=== PATIENT | male | born 1935 | race Hispanic/Latino ===

== ENCOUNTER 2017-04-10 11:10 | Inpatient (IN) | payer OTHER, MEDICARE ==
[~2017-04-10] VITALS: Ht 177.8 cm; Wt 78.6 kg
[2017-04-10] MEDS ORDERED: IPRATROPIUM/ALBUTEROL SULFATE 3 ML SOLUTION IH ONE ×2 (11:31→22:07)
[2017-04-10 11:45] LABS: CREATININE 2.9 mg/dL (0.5-1.5); POTASSIUM 3.6 mmol/L (3.5-5.1)
[2017-04-10 11:50] LABS: ALBUMIN 2.9 g/dL (3.5-5.0); BILIRUBIN,TOTAL 0.9 mg/dL (0.2-1.0); TOTAL PROTEIN, SERUM 6.4 g/dL (6.0-8.3)
[2017-04-10] MEDS ORDERED: CEFTRIAXONE SODIUM 1 GM ONE (11:50)
[2017-04-10] MEDS ORDERED: SODIUM CHLORIDE 0.9% 1000ML 3,000 ML IV ONE (11:50)
[2017-04-10] MEDS ORDERED: AZITHROMYCIN 500MG+NS 250ML 250 ML IV ONE (11:50)
[2017-04-10 11:57] LABS: BASOPHILS % (AUTO) 0.4 % (0.0-5.0); EOSINOPHILS % (AUTO) 0.1 % (0.0-8.0); HEMATOCRIT 30.3 % (42-54); LYMPHOCYTES % (AUTO) 10.1 % (21.0-51.0); MEAN CORPUSCULAR HGB CONC 33.9 g/dL (32.0-36.0); MEAN CORPUSCULAR VOLUME 91.4 fL (79-99); MONOCYTES % (AUTO) 10.2 % (3.0-13.0); NEUTROPHILS % (AUTO) 79.2 % (40.0-77.0); PLATELET COUNT (AUTO) 182 K/uL (130-400); RED BLOOD CELL COUNT(AUTO) 3.32 MIL/uL (4.50-6.20); RED CELL DISTRIBUTION WIDTH 14.6 % (11.0-15.5); WHITE BLOOD COUNT (AUTO) 12.4 K/uL (4.8-10.8)
[2017-04-10 13:11] LABS: CREATINE KINASE MB 11.5 ng/mL (0.5-3.6)
[2017-04-10] MEDS ORDERED: ENOXAPARIN SODIUM 100 MG/1 ML SQ ONE (13:11)
[2017-04-10] MEDS ORDERED: ASPIRIN 81MG TAB.CHEW ONE (13:11)
[2017-04-10] MEDS ORDERED: FUROSEMIDE 10 MG/ML 4ML VIAL ONE ×2 (13:32→17:02)
[2017-04-10 17:56] LABS: CREATINE KINASE MB 12.7 ng/mL (0.5-3.6)
[2017-04-10 18:01] LABS: TROPONIN I 18.41 ng/mL (0.00-0.06)
[2017-04-10] MEDS ORDERED: DOXYCYCLINE 100MG+NS 250ML 250 ML IV SCH (18:15)
[2017-04-10] MEDS: ZOSYN 3.375GM+NS 50ML 50 ML IV SCH (18:15)
[2017-04-10 18:37] LABS: ABG BASE EXCESS -2.7 mmol/L (-2.0-3.0); ABG HCO3 20.1 mmol/L (21.0-28.0); ABG OXYGEN SATURATION 93.9 % (95.0-99.0); ABG PCO2 30 mmHg (35-48)
[2017-04-10] MEDS ORDERED: ACETAMINOPHEN 120 MG SUPPOSITORY RC ONE (19:20)
[2017-04-10 19:35] LABS: APPEARANCE,URINE Clear (CLEAR); BILIRUBIN,URINE Negative (NEGATIVE); COLOR,URINE Yellow (YELLOW); GLUCOSE, URINE (UA) Negative (NEGATIVE); KETONES,URINE Negative (NEGATIVE); LEUKOCYTE ESTERASE ,URINE Trace (NEGATIVE); NITRATE,URINE Negative (NEGATIVE); OCCULT BLOOD,URINE Negative (NEGATIVE); PROTEIN,URINE Negative (NEGATIVE); UROBILINOGEN,URINE 0.2 mg/dL (0.2-1.0)
[2017-04-10 19:46] LABS: BACTERIA,URINE Rare /HPF (None Seen); RBC,URINE 0-1 /HPF (0-1); SQUAMOUS EPITHELIAL CELL,UR Rare /LPF (0-2)
[2017-04-10] MEDS ORDERED: DOXYCYCLINE 100MG+NS 250ML 250 ML IV ONE (22:05)
[2017-04-10] MEDS ORDERED: ZOSYN 3.375GM+NS 50ML 50 ML IV ONE (22:05)
[2017-04-10 23:02] LABS: CREATININE 2.6 mg/dL (0.5-1.5); POTASSIUM 3.5 mmol/L (3.5-5.1)
[2017-04-10 23:09] VITALS: BP 147/86
[2017-04-10 23:28] LABS: ALBUMIN 2.7 g/dL (3.5-5.0); BILIRUBIN,TOTAL 0.9 mg/dL (0.2-1.0); CREATINE KINASE MB 14.5 ng/mL (0.5-3.6); TOTAL PROTEIN, SERUM 6.2 g/dL (6.0-8.3)
[2017-04-10 23:30] VITALS: BP 125/47
[2017-04-10 23:30] LABS: TROPONIN I 18.17 ng/mL (0.00-0.06)
[2017-04-11] VITALS (27 sets, daily range): BP systolic 111–135; BP diastolic 59–94
[2017-04-11] MEDS ORDERED: IPRATROPIUM 0.5 MG/2.5 ML INH IH SCH
[2017-04-11] MEDS ORDERED: ACETAMINOPHEN 325 MG TAB PO PRN ×2 (00:15)
[2017-04-11] MEDS: IPRATROPIUM 0.5 MG/2.5 ML INH IH SCH ×6 (02:54→22:47)
[2017-04-11 04:00] LABS: HEMATOCRIT 30.4 % (42-54); MEAN CORPUSCULAR HEMOGLOBIN 32.5 pg (27.0-33.0); MEAN CORPUSCULAR HGB CONC 35.1 g/dL (32.0-36.0); MEAN CORPUSCULAR VOLUME 92.7 fL (79-99); PLATELET COUNT (AUTO) 186 K/uL (130-400); RED BLOOD CELL COUNT(AUTO) 3.28 MIL/uL (4.50-6.20); RED CELL DISTRIBUTION WIDTH 14.6 % (11.0-15.5); WHITE BLOOD COUNT (AUTO) 11.8 K/uL (4.8-10.8)
[2017-04-11 04:04] LABS: ABG BASE EXCESS -0.3 mmol/L (-2.0-3.0); ABG HCO3 22.1 mmol/L (21.0-28.0); ABG PCO2 31 mmHg (35-48)
[2017-04-11 04:07] LABS: INR 1.17 (0.85-1.15); PARTIAL THROMBOPLASTIN TIME 35.9 SEC (26.3-35.5); PROTHROMBIN TIME 12.2 SEC (9.6-11.6)
[2017-04-11 04:13] LABS: ALBUMIN 2.6 g/dL (3.5-5.0); BILIRUBIN,TOTAL 0.8 mg/dL (0.2-1.0); CREATININE 2.6 mg/dL (0.5-1.5); PHOSPHORUS 5.1 mg/dL (2.5-4.9); POTASSIUM 3.2 mmol/L (3.5-5.1); TOTAL PROTEIN, SERUM 6.1 g/dL (6.0-8.3)
[2017-04-11 04:16] LABS: B-TYPE NATRIURETIC PEPTIDE 920 pg/mL (0-100)
[2017-04-11 06:51] LABS: CREATINE KINASE MB 10.4 ng/mL (0.5-3.6)
[2017-04-11 06:54] LABS: TROPONIN I 18.27 ng/mL (0.00-0.06)
[2017-04-11] MEDS: ZOSYN 3.375GM+NS 50ML 50 ML IV SCH ×2 (06:57→20:09)
[2017-04-11] MEDS ORDERED: ZOSYN 3.375GM+NS 50ML 50 ML IV SCH (07:00)
[2017-04-11] MEDS ORDERED: ENOXAPARIN SODIUM 1 MG/KG SQ SCH (09:00)
[2017-04-11] MEDS ORDERED: ASPIRIN 325 MG TABLET PO SCH (09:00)
[2017-04-11] MEDS: OSELTAMIVIR PHOSPHATE 75 MG CAP PO SCH (09:52)
[2017-04-11] MEDS: LEVOFLOXACIN 500 MG/D5W 100 ML 100 ML IV SCH (09:52)
[2017-04-11] MEDS ORDERED: SODIUM CHLORIDE 3% FOR INHALATION 4 ML/AMP VIAL.NEB IH ONE ×2 (10:18→14:12)
[2017-04-11] MEDS: DOXYCYCLINE 100MG+NS 250ML 250 ML IV SCH ×2 (11:36→22:11)
[2017-04-11] MEDS: ENOXAPARIN SODIUM 80 MG/0.8 ML SQ SCH ×2 (11:39→22:11)
[2017-04-11] MEDS: FUROSEMIDE 10 MG/ML 4ML VIAL IV SCH ×2 (11:39→22:12)
[2017-04-11] MEDS ORDERED: MAG HYDROX/AL HYDROX/SIMETH ES 30 ML SUSP UDCUP PO PRN (18:45)
[2017-04-11] MEDS: ATORVASTATIN CALCIUM 20 MG TABLET PO SCH (20:08)
[2017-04-11] MEDS: DOBUTAMINE 250MG/D5 250ML 250 ML IV SCH (20:40)
[2017-04-12] VITALS (24 sets, daily range): BP systolic 98–148; BP diastolic 43–84
[2017-04-12] MEDS ORDERED: SODIUM CHLORIDE 3% FOR INHALATION 4 ML/AMP VIAL.NEB IH ONE (02:41)
[2017-04-12] MEDS: IPRATROPIUM 0.5 MG/2.5 ML INH IH SCH ×6 (02:44→22:18)
[2017-04-12 05:51] LABS: HEMATOCRIT 31.6 % (42-54); MEAN CORPUSCULAR HEMOGLOBIN 31.8 pg (27.0-33.0); MEAN CORPUSCULAR HGB CONC 34.9 g/dL (32.0-36.0); MEAN CORPUSCULAR VOLUME 91.2 fL (79-99); PLATELET COUNT (AUTO) 224 K/uL (130-400); RED BLOOD CELL COUNT(AUTO) 3.46 MIL/uL (4.50-6.20); RED CELL DISTRIBUTION WIDTH 14.6 % (11.0-15.5); WHITE BLOOD COUNT (AUTO) 9.2 K/uL (4.8-10.8)
[2017-04-12 05:52] LABS: B-TYPE NATRIURETIC PEPTIDE 954 pg/mL (0-100)
[2017-04-12 06:03] LABS: CREATINE KINASE MB 6.5 ng/mL (0.5-3.6); CREATININE 2.4 mg/dL (0.5-1.5)
[2017-04-12 06:07] LABS: POTASSIUM 2.8 mmol/L (3.5-5.1); TROPONIN I 11.52 ng/mL (0.00-0.06)
[2017-04-12 06:10] LABS: % IRON SATURATION 11.6 % (30-44)
[2017-04-12] MEDS ORDERED: POTASSIUM CHLORIDE 20MEQ/100ML 100 ML IV ONE ×3 (06:41→11:00)
[2017-04-12] MEDS ORDERED: POTASSIUM CHLORIDE 20MEQ/100ML 100 ML IV SCH (07:19)
[2017-04-12 07:29] LABS: ABG BASE EXCESS 1.9 mmol/L (-2.0-3.0); ABG HCO3 23.6 mmol/L (21.0-28.0); ABG OXYGEN SATURATION 93.5 % (95.0-99.0); ABG PCO2 29 mmHg (35-48)
[2017-04-12 07:47] LABS: PHOSPHORUS 4.9 mg/dL (2.5-4.9)
[2017-04-12] MEDS ORDERED: METOLAZONE 2.5 MG TABLET PO SCH (09:30)
[2017-04-12] MEDS: FUROSEMIDE 10 MG/ML 4ML VIAL IV SCH ×2 (09:54→22:30)
[2017-04-12] MEDS: POTASSIUM CHLORIDE 20MEQ/100ML 100 ML IV SCH ×2 (09:55→13:30)
[2017-04-12] MEDS: OSELTAMIVIR PHOSPHATE 75 MG CAP PO SCH (09:55)
[2017-04-12] MEDS: LEVOFLOXACIN 500 MG/D5W 100 ML 100 ML IV SCH (09:55)
[2017-04-12] MEDS: ZOSYN 3.375GM+NS 50ML 50 ML IV SCH ×2 (09:55→20:52)
[2017-04-12] MEDS: TAMSULOSIN HCL 0.4 MG CAP.ER.24H PO SCH (09:55)
[2017-04-12] MEDS: CARVEDILOL 3.125 MG TABLET PO SCH ×2 (09:56→20:50)
[2017-04-12] MEDS: ASPIRIN 325MG EC TAB 325 MG TABLET.DR PO SCH (09:56)
[2017-04-12] MEDS: DOXYCYCLINE 100MG+NS 250ML 250 ML IV SCH ×2 (09:57→20:56)
[2017-04-12] MEDS ORDERED: FAMOTIDINE 20MG TAB 20 MG TAB PO SCH (10:00)
[2017-04-12] MEDS: ENOXAPARIN SODIUM 80 MG/0.8 ML SQ SCH ×2 (10:29→20:52)
[2017-04-12] MEDS: DOBUTAMINE 250MG/D5 250ML 250 ML IV SCH (15:56)
[2017-04-12] MEDS: ATORVASTATIN CALCIUM 20 MG TABLET PO SCH (20:49)
[2017-04-13] VITALS (24 sets, daily range): BP systolic 112–158; BP diastolic 50–102
[2017-04-13] MEDS: IPRATROPIUM 0.5 MG/2.5 ML INH IH SCH ×6 (02:03→21:55)
[2017-04-13 03:44] LABS: MEAN CORPUSCULAR HEMOGLOBIN 32.1 pg (27.0-33.0); MEAN CORPUSCULAR HGB CONC 35.1 g/dL (32.0-36.0); MEAN CORPUSCULAR VOLUME 91.6 fL (79-99); PLATELET COUNT (AUTO) 247 K/uL (130-400); RED BLOOD CELL COUNT(AUTO) 3.38 MIL/uL (4.50-6.20); RED CELL DISTRIBUTION WIDTH 14.2 % (11.0-15.5); WHITE BLOOD COUNT (AUTO) 8.8 K/uL (4.8-10.8)
[2017-04-13 04:04] LABS: CREATININE 2.2 mg/dL (0.5-1.5); MAGNESIUM 1.8 mg/dL (1.80-2.40); PHOSPHORUS 4.3 mg/dL (2.5-4.9)
[2017-04-13 04:09] LABS: POTASSIUM 2.7 mmol/L (3.5-5.1)
[2017-04-13] MEDS ORDERED: POTASSIUM CHLORIDE 20MEQ/100ML 100 ML IV SCH (04:15)
[2017-04-13 06:20] LABS: ABG BASE EXCESS 2.7 mmol/L (-2.0-3.0); ABG HCO3 25.3 mmol/L (21.0-28.0); ABG OXYGEN SATURATION 98.7 % (95.0-99.0); ABG PCO2 33 mmHg (35-48)
[2017-04-13] MEDS: ASPIRIN 325MG EC TAB 325 MG TABLET.DR PO SCH (08:27)
[2017-04-13] MEDS: ZOSYN 3.375GM+NS 50ML 50 ML IV SCH ×2 (08:27→21:02)
[2017-04-13] MEDS: LEVOFLOXACIN 500 MG/D5W 100 ML 100 ML IV SCH (08:27)
[2017-04-13] MEDS: ENOXAPARIN SODIUM 80 MG/0.8 ML SQ SCH (08:28)
[2017-04-13] MEDS: OSELTAMIVIR PHOSPHATE 75 MG CAP PO SCH (08:28)
[2017-04-13] MEDS: TAMSULOSIN HCL 0.4 MG CAP.ER.24H PO SCH (08:28)
[2017-04-13] MEDS: FAMOTIDINE 20MG TAB 20 MG TAB PO SCH (08:28)
[2017-04-13] MEDS ORDERED: FUROSEMIDE 40 MG TABLET PO SCH (09:00)
[2017-04-13] MEDS ORDERED: POTASSIUM CHLORIDE 20 MEQ ERTAB PO SCH (09:00)
[2017-04-13] MEDS ORDERED: POTASSIUM CHLORIDE 20 MEQ ERTAB PO ONE (09:29)
[2017-04-13] MEDS ORDERED: FUROSEMIDE 40 MG TABLET ONE (09:29)
[2017-04-13] MEDS: DOXYCYCLINE 100MG+NS 250ML 250 ML IV SCH ×2 (09:52→21:02)
[2017-04-13] MEDS: FUROSEMIDE 40 MG TABLET PO SCH ×2 (09:53→17:51)
[2017-04-13] MEDS: HEPARIN SODIUM 5000UNIT/ML 1ML VIAL SQ SCH (21:00)
[2017-04-13] MEDS: ATORVASTATIN CALCIUM 20 MG TABLET PO SCH (21:02)
[2017-04-14] VITALS (13 sets, daily range): BP systolic 112–149; BP diastolic 48–78
[2017-04-14] MEDS: IPRATROPIUM 0.5 MG/2.5 ML INH IH SCH ×7 (02:15→22:00)
[2017-04-14 07:34] LABS: CREATININE 2.3 mg/dL (0.5-1.5)
[2017-04-14] MEDS: ASPIRIN 325MG EC TAB 325 MG TABLET.DR PO SCH (08:08)
[2017-04-14] MEDS: FAMOTIDINE 20MG TAB 20 MG TAB PO SCH (08:08)
[2017-04-14] MEDS: OSELTAMIVIR PHOSPHATE 75 MG CAP PO SCH (08:08)
[2017-04-14] MEDS: LEVOFLOXACIN 500 MG/D5W 100 ML 100 ML IV SCH (08:08)
[2017-04-14] MEDS: TAMSULOSIN HCL 0.4 MG CAP.ER.24H PO SCH (08:08)
[2017-04-14] MEDS: FUROSEMIDE 40 MG TABLET PO SCH ×2 (08:08→16:50)
[2017-04-14] MEDS: ZOSYN 3.375GM+NS 50ML 50 ML IV SCH ×2 (09:54→21:07)
[2017-04-14] MEDS: DOXYCYCLINE 100MG+NS 250ML 250 ML IV SCH ×2 (09:56→22:40)
[2017-04-14] MEDS: HEPARIN SODIUM 5000UNIT/ML 1ML VIAL SQ SCH ×2 (09:57→21:09)
[2017-04-14] MEDS ORDERED: POTASSIUM CHLORIDE 10% ELIXIR 20 MEQ/15 ML UDCUP ONE (10:06)
[2017-04-14] MEDS: POTASSIUM CHLORIDE 10% ELIXIR 20 MEQ/15 ML UDCUP PO PRN (10:25)
[2017-04-14] MEDS: POTASSIUM CHLORIDE 20 MEQ ERTAB PO PRN ×2 (12:18→16:51)
[2017-04-14] MEDS: ATORVASTATIN CALCIUM 20 MG TABLET PO SCH (21:07)
[2017-04-15] VITALS: BP 139/78
[2017-04-15] MEDS: IPRATROPIUM 0.5 MG/2.5 ML INH IH SCH ×6 (02:00→23:09)
[2017-04-15 04:00] VITALS: BP 132/76
[2017-04-15 08:00] VITALS: BP 133/79
[2017-04-15] MEDS: ZOSYN 3.375GM+NS 50ML 50 ML IV SCH ×2 (09:06→21:26)
[2017-04-15] MEDS: FAMOTIDINE 20MG TAB 20 MG TAB PO SCH (09:06)
[2017-04-15] MEDS: LEVOFLOXACIN 500 MG/D5W 100 ML 100 ML IV SCH (09:06)
[2017-04-15] MEDS: ASPIRIN 325MG EC TAB 325 MG TABLET.DR PO SCH (09:06)
[2017-04-15] MEDS: OSELTAMIVIR PHOSPHATE 75 MG CAP PO SCH (09:06)
[2017-04-15] MEDS: FUROSEMIDE 40 MG TABLET PO SCH ×2 (09:06→18:28)
[2017-04-15] MEDS: TAMSULOSIN HCL 0.4 MG CAP.ER.24H PO SCH (09:06)
[2017-04-15] MEDS: HEPARIN SODIUM 5000UNIT/ML 1ML VIAL SQ SCH ×2 (09:07→21:38)
[2017-04-15] MEDS: DOXYCYCLINE 100MG+NS 250ML 250 ML IV SCH ×2 (10:47→21:29)
[2017-04-15 12:00] VITALS: BP 123/79
[2017-04-15 16:00] VITALS: BP 132/79
[2017-04-15 19:00] VITALS: BP 127/72
[2017-04-15] MEDS: ATORVASTATIN CALCIUM 20 MG TABLET PO SCH (21:31)
[2017-04-16] VITALS: BP 137/79
[2017-04-16] MEDS: IPRATROPIUM 0.5 MG/2.5 ML INH IH SCH ×6 (02:22→22:07)
[2017-04-16 03:50] VITALS: BP 121/73
[2017-04-16 07:54] VITALS: BP 143/78
[2017-04-16] MEDS: ASPIRIN 325MG EC TAB 325 MG TABLET.DR PO SCH (08:51)
[2017-04-16] MEDS: FAMOTIDINE 20MG TAB 20 MG TAB PO SCH (08:51)
[2017-04-16] MEDS: LEVOFLOXACIN 500 MG/D5W 100 ML 100 ML IV SCH (08:52)
[2017-04-16] MEDS: TAMSULOSIN HCL 0.4 MG CAP.ER.24H PO SCH (08:52)
[2017-04-16] MEDS: FUROSEMIDE 40 MG TABLET PO SCH ×2 (08:52→16:52)
[2017-04-16] MEDS: HEPARIN SODIUM 5000UNIT/ML 1ML VIAL SQ SCH ×2 (08:52→20:57)
[2017-04-16] MEDS: DOXYCYCLINE 100MG+NS 250ML 250 ML IV SCH ×2 (09:02→22:05)
[2017-04-16] MEDS: ZOSYN 3.375GM+NS 50ML 50 ML IV SCH ×2 (09:39→20:56)
[2017-04-16 11:54] VITALS: BP 140/86
[2017-04-16 16:08] VITALS: BP 143/81
[2017-04-16 20:39] VITALS: BP_SYST 122; BP_SYST 141; BP_DIAS 74; BP_DIAS 76
[2017-04-16] MEDS: ATORVASTATIN CALCIUM 20 MG TABLET PO SCH (20:56)
[2017-04-17] VITALS (7 sets, daily range): BP systolic 122–141; BP diastolic 75–87
[2017-04-17] MEDS: IPRATROPIUM 0.5 MG/2.5 ML INH IH SCH ×6 (02:48→22:42)
[2017-04-17 05:47] LABS: HEMATOCRIT 34.8 % (42-54); MEAN CORPUSCULAR HEMOGLOBIN 30.9 pg (27.0-33.0); MEAN CORPUSCULAR HGB CONC 34.2 g/dL (32.0-36.0); MEAN CORPUSCULAR VOLUME 90.5 fL (79-99); PLATELET COUNT (AUTO) 300 K/uL (130-400); RED BLOOD CELL COUNT(AUTO) 3.85 MIL/uL (4.50-6.20); RED CELL DISTRIBUTION WIDTH 14.5 % (11.0-15.5); WHITE BLOOD COUNT (AUTO) 13.6 K/uL (4.8-10.8)
[2017-04-17 05:55] LABS: EOSINOPHILS % (MANUAL) 7 % (1-6); LYMPHOCYTES % (MANUAL) 14 % (22-44); MONOCYTES % (MANUAL) 5 % (2-9); SEGMENTED NEUTROPHILS % 74 % (40-70)
[2017-04-17 05:56] LABS: MAN.DIFF COMMENT-IMPRESSION MANUAL DIFFERENTIAL; PLATELET MORPHOLOGY COMMENT ADEQUATE
[2017-04-17 06:00] LABS: CREATININE 2.4 mg/dL (0.5-1.5); PHOSPHORUS 5.1 mg/dL (2.5-4.9); POTASSIUM 3.6 mmol/L (3.5-5.1)
[2017-04-17] MEDS: POTASSIUM CHLORIDE 10% ELIXIR 20 MEQ/15 ML UDCUP PO PRN (06:18)
[2017-04-17] MEDS: ZOSYN 3.375GM+NS 50ML 50 ML IV SCH ×2 (08:18→21:05)
[2017-04-17] MEDS: FAMOTIDINE 20MG TAB 20 MG TAB PO SCH (08:19)
[2017-04-17] MEDS: ASPIRIN 325MG EC TAB 325 MG TABLET.DR PO SCH (08:19)
[2017-04-17] MEDS: LEVOFLOXACIN 500 MG/D5W 100 ML 100 ML IV SCH (08:19)
[2017-04-17] MEDS: TAMSULOSIN HCL 0.4 MG CAP.ER.24H PO SCH (08:19)
[2017-04-17] MEDS: FUROSEMIDE 40 MG TABLET PO SCH ×2 (08:19→17:16)
[2017-04-17] MEDS: POTASSIUM CHLORIDE 20 MEQ ERTAB PO PRN (08:22)
[2017-04-17] MEDS: HEPARIN SODIUM 5000UNIT/ML 1ML VIAL SQ SCH ×2 (08:23→21:05)
[2017-04-17] MEDS: DOXYCYCLINE 100MG+NS 250ML 250 ML IV SCH ×2 (10:00→22:00)
[2017-04-17] MEDS ORDERED: LEVO500T89 PO (15:32)
[2017-04-17] MEDS ORDERED: DOXY100T2 PO (15:32)
[2017-04-17] MEDS ORDERED: TAMS-1 PO (15:32)
[2017-04-17] MEDS ORDERED: ASPI-891 PO (15:32)
[2017-04-17] MEDS ORDERED: FAMO20TA8 PO (15:32)
[2017-04-17] MEDS ORDERED: FURO40TA7 PO (15:32)
[2017-04-17] MEDS ORDERED: ATOR20TA65 PO (15:32)
[2017-04-17] MEDS: ATORVASTATIN CALCIUM 20 MG TABLET PO SCH (21:05)
[2017-04-18] MEDS: IPRATROPIUM 0.5 MG/2.5 ML INH IH SCH ×6 (02:30→22:33)
[2017-04-18 03:48] VITALS: BP 138/85
[2017-04-18 04:08] LABS: HEMATOCRIT 34.8 % (42-54); MEAN CORPUSCULAR HEMOGLOBIN 30.6 pg (27.0-33.0); MEAN CORPUSCULAR HGB CONC 33.7 g/dL (32.0-36.0); MEAN CORPUSCULAR VOLUME 90.8 fL (79-99); PLATELET COUNT (AUTO) 320 K/uL (130-400); RED BLOOD CELL COUNT(AUTO) 3.83 MIL/uL (4.50-6.20); RED CELL DISTRIBUTION WIDTH 14.5 % (11.0-15.5); WHITE BLOOD COUNT (AUTO) 15.3 K/uL (4.8-10.8)
[2017-04-18 04:17] LABS: CREATININE 2.5 mg/dL (0.5-1.5); POTASSIUM 3.3 mmol/L (3.5-5.1)
[2017-04-18] MEDS: POTASSIUM CHLORIDE 10% ELIXIR 20 MEQ/15 ML UDCUP PO PRN ×2 (04:53→17:24)
[2017-04-18 08:00] VITALS: BP 142/86
[2017-04-18] MEDS: LEVOFLOXACIN 500 MG/D5W 100 ML 100 ML IV SCH (09:57)
[2017-04-18] MEDS: DOXYCYCLINE 100MG+NS 250ML 250 ML IV SCH (09:58)
[2017-04-18] MEDS: ZOSYN 3.375GM+NS 50ML 50 ML IV SCH ×2 (09:58→22:00)
[2017-04-18] MEDS: FUROSEMIDE 40 MG TABLET PO SCH ×2 (10:03→16:24)
[2017-04-18] MEDS: ASPIRIN 325MG EC TAB 325 MG TABLET.DR PO SCH (10:03)
[2017-04-18] MEDS: TAMSULOSIN HCL 0.4 MG CAP.ER.24H PO SCH (10:03)
[2017-04-18] MEDS: FAMOTIDINE 20MG TAB 20 MG TAB PO SCH (10:03)
[2017-04-18] MEDS: HEPARIN SODIUM 5000UNIT/ML 1ML VIAL SQ SCH ×2 (10:07→22:08)
[2017-04-18 11:00] VITALS: BP 132/76
[2017-04-18 16:00] VITALS: BP 151/68
[2017-04-18] MEDS: POTASSIUM CHLORIDE 20 MEQ ERTAB PO PRN (17:34)
[2017-04-18 19:00] VITALS: BP 143/84
[2017-04-18] MEDS: ATORVASTATIN CALCIUM 20 MG TABLET PO SCH (21:59)
[2017-04-18 23:44] VITALS: BP 145/87
[2017-04-19] MEDS: DOXYCYCLINE 100MG+NS 250ML 250 ML IV SCH ×3 (00:15→22:54)
[2017-04-19] MEDS: IPRATROPIUM 0.5 MG/2.5 ML INH IH SCH ×6 (01:43→21:22)
[2017-04-19 04:00] VITALS: BP 146/87
[2017-04-19 04:05] LABS: HEMATOCRIT 34.8 % (42-54); MEAN CORPUSCULAR HEMOGLOBIN 31.3 pg (27.0-33.0); MEAN CORPUSCULAR HGB CONC 34.3 g/dL (32.0-36.0); MEAN CORPUSCULAR VOLUME 91.1 fL (79-99); PLATELET COUNT (AUTO) 318 K/uL (130-400); RED BLOOD CELL COUNT(AUTO) 3.82 MIL/uL (4.50-6.20); RED CELL DISTRIBUTION WIDTH 14.5 % (11.0-15.5); WHITE BLOOD COUNT (AUTO) 13.7 K/uL (4.8-10.8)
[2017-04-19 04:13] LABS: CREATININE 2.4 mg/dL (0.5-1.5); MAGNESIUM 1.8 mg/dL (1.80-2.40); POTASSIUM 3.6 mmol/L (3.5-5.1)
[2017-04-19 08:00] VITALS: BP 142/90
[2017-04-19] MEDS: LEVOFLOXACIN 500 MG/D5W 100 ML 100 ML IV SCH (09:08)
[2017-04-19] MEDS: FAMOTIDINE 20MG TAB 20 MG TAB PO SCH (09:08)
[2017-04-19] MEDS: ASPIRIN 325MG EC TAB 325 MG TABLET.DR PO SCH (09:08)
[2017-04-19] MEDS: TAMSULOSIN HCL 0.4 MG CAP.ER.24H PO SCH (09:08)
[2017-04-19] MEDS: ZOSYN 3.375GM+NS 50ML 50 ML IV SCH ×2 (09:08→22:50)
[2017-04-19] MEDS: FUROSEMIDE 40 MG TABLET PO SCH ×2 (09:08→17:57)
[2017-04-19] MEDS: HEPARIN SODIUM 5000UNIT/ML 1ML VIAL SQ SCH ×2 (09:12→23:06)
[2017-04-19 11:00] VITALS: BP 130/82
[2017-04-19 16:00] VITALS: BP 113/65
[2017-04-19 19:00] VITALS: BP 130/84
[2017-04-19] MEDS: POTASSIUM CHLORIDE 20 MEQ ERTAB PO PRN ×2 (19:39→22:53)
[2017-04-19] MEDS: ATORVASTATIN CALCIUM 20 MG TABLET PO SCH (22:53)
[2017-04-19 23:46] VITALS: BP 133/81
[2017-04-20] MEDS: IPRATROPIUM 0.5 MG/2.5 ML INH IH SCH ×5 (01:43→18:36)
[2017-04-20 03:23] LABS: HEMATOCRIT 33.7 % (42-54); MEAN CORPUSCULAR HEMOGLOBIN 31.3 pg (27.0-33.0); MEAN CORPUSCULAR HGB CONC 34.3 g/dL (32.0-36.0); MEAN CORPUSCULAR VOLUME 91.1 fL (79-99); PLATELET COUNT (AUTO) 304 K/uL (130-400); RED CELL DISTRIBUTION WIDTH 14.8 % (11.0-15.5); WHITE BLOOD COUNT (AUTO) 12.6 K/uL (4.8-10.8)
[2017-04-20 03:34] LABS: CREATININE 2.2 mg/dL (0.5-1.5); POTASSIUM 3.5 mmol/L (3.5-5.1)
[2017-04-20 04:00] VITALS: BP 133/77
[2017-04-20 09:00] VITALS: BP 128/72
[2017-04-20] MEDS: HEPARIN SODIUM 5000UNIT/ML 1ML VIAL SQ SCH (09:00)
[2017-04-20] MEDS: TAMSULOSIN HCL 0.4 MG CAP.ER.24H PO SCH (09:33)
[2017-04-20] MEDS: FUROSEMIDE 40 MG TABLET PO SCH ×2 (09:33→18:29)
[2017-04-20] MEDS: LEVOFLOXACIN 500 MG/D5W 100 ML 100 ML IV SCH (09:34)
[2017-04-20] MEDS: ASPIRIN 325MG EC TAB 325 MG TABLET.DR PO SCH (09:34)
[2017-04-20] MEDS: FAMOTIDINE 20MG TAB 20 MG TAB PO SCH (09:34)
[2017-04-20] MEDS: ZOSYN 3.375GM+NS 50ML 50 ML IV SCH (09:35)
[2017-04-20] MEDS: DOXYCYCLINE 100MG+NS 250ML 250 ML IV SCH (10:40)
[2017-04-20] MEDS: POTASSIUM CHLORIDE 20 MEQ ERTAB PO PRN (11:15)
[2017-04-20 12:52] VITALS: BP 133/78
[2017-04-20 16:00] VITALS: BP 109/68
== END 2017-04-20 20:02 | DRG 871 ==
LOC: EDH 11:10 → EDHIP 12:00 → 2BH 22:25 → 2CH 04-14 17:06 → 3BH 04-14 21:40
PROVIDERS: ADMIT Family Medicine; ATTEND Family Medicine
PROC: 5A09357 Assistance with Respiratory Ventilation, Less than 24 Consecutive Hours, Continuous Positive Airway Pressure (ICD-10-PCS; principal; 2017-04-10)
PROC: 5A09357 Assistance with Respiratory Ventilation, Less than 24 Consecutive Hours, Continuous Positive Airway Pressure (ICD-10-PCS; 2017-04-11)
PROC: 5A09357 Assistance with Respiratory Ventilation, Less than 24 Consecutive Hours, Continuous Positive Airway Pressure (ICD-10-PCS; 2017-04-12)
PROC: 5A09357 Assistance with Respiratory Ventilation, Less than 24 Consecutive Hours, Continuous Positive Airway Pressure (ICD-10-PCS; 2017-04-12)
PROC: 5A09357 Assistance with Respiratory Ventilation, Less than 24 Consecutive Hours, Continuous Positive Airway Pressure (ICD-10-PCS; 2017-04-12)
PROC: 5A09357 Assistance with Respiratory Ventilation, Less than 24 Consecutive Hours, Continuous Positive Airway Pressure (ICD-10-PCS; 2017-04-12)
PROC: 5A09357 Assistance with Respiratory Ventilation, Less than 24 Consecutive Hours, Continuous Positive Airway Pressure (ICD-10-PCS; 2017-04-12)
PROC: 5A09357 Assistance with Respiratory Ventilation, Less than 24 Consecutive Hours, Continuous Positive Airway Pressure (ICD-10-PCS; 2017-04-12)
DX: A41.9 Sepsis, unspecified organism (principal); I21.4 Non-ST elevation (NSTEMI) myocardial infarction; I63.9 Cerebral infarction, unspecified; I50.43 Acute on chronic combined systolic (congestive) and diastolic (congestive) heart failure; J96.01 Acute respiratory failure with hypoxia; N17.0 Acute kidney failure with tubular necrosis; J18.9 Pneumonia, unspecified organism; G93.41 Metabolic encephalopathy; I13.0 Hypertensive heart and chronic kidney disease with heart failure and stage 1 through stage 4 chronic kidney disease, or unspecified chronic kidney disease; E87.6 Hypokalemia; H54.7 Unspecified visual loss; N18.9 Chronic kidney disease, unspecified; D64.9 Anemia, unspecified; I25.5 Ischemic cardiomyopathy; R00.1 Bradycardia, unspecified; E11.22 Type 2 diabetes mellitus with diabetic chronic kidney disease; N40.0 Benign prostatic hyperplasia without lower urinary tract symptoms; R79.89 Other specified abnormal findings of blood chemistry; M54.12 Radiculopathy, cervical region; I25.10 Atherosclerotic heart disease of native coronary artery without angina pectoris; Z87.891 Personal history of nicotine dependence; Z79.82 Long term (current) use of aspirin; Z79.899 Other long term (current) drug therapy; Z82.49 Family history of ischemic heart disease and other diseases of the circulatory system; Z83.3 Family history of diabetes mellitus
CPT/HCPCS: 36415; 36600; 70450; 70544; 70547; 70551; 71010; 71250; 76770; 80048; 80053; 81001; 82550; 82553; 82803; 83540; 83550; 83605; 83735; 83874; 83880; 84100; 84132; 84484; 85025; 85027; 85610; 85730; 87040; 87804; 93005; 93306; 93880; 93970; 94640; 94660; 94664; 99291; A4344; A6234; J0456; J0696; J1250; J1644; J1650; J1940; J1956; J2543; J3480; J3490; J7030